=== PATIENT | female | born 1975 | race Caucasian/White ===

== ENCOUNTER 2016-10-21 20:52 | Emergency (ER) | payer BC ==
[~2016-10-21] VITALS: Ht 154.9 cm; Wt 68.0 kg
[2016-10-21 21:40] VITALS: BP 130/85
[2016-10-21 22:15] LABS: BASOPHILS % (AUTO) 0.9 % (0.0-2.0); EOSINOPHILS % (AUTO) 1.6 % (0.0-3.0); MEAN CORPUSCULAR HEMOGLOBIN 31.3 PG (27.0-31.0); MEAN CORPUSCULAR HGB CONC 32.5 G/DL (32.0-36.0); MEAN CORPUSCULAR VOLUME 96 FL (80-99); MEAN PLATELET VOLUME 6.5 FL (6.5-10.1); MONOCYTES % (AUTO) 3.2 % (1.0-10.0); NEUTROPHILS % (AUTO) 79.3 % (45.0-75.0); PLATELET COUNT 425 K/UL (150-450); RED BLOOD COUNT 3.93 M/UL (4.20-5.40); RED CELL DISTRIBUTION WIDTH 13.7 % (11.6-14.8); WHITE BLOOD COUNT 11.5 K/UL (4.8-10.8)
[2016-10-21 22:30] LABS: PROTHROMBIN TIME 10.3 SEC (9.30-11.50)
[2016-10-21 22:55] LABS: ALANINE AMINOTRANSFERASE 42 U/L (3-33); ALBUMIN/GLOBULIN RATIO 1.5 (1.0-2.7); ANION GAP 12 (5-15); ASPARTATE AMINO TRANSFERASE 25 U/L (5-40); CALCIUM 9.5 mg/dL (8.6-10.2); CARBON DIOXIDE 24 mEQ/L (20-30); CHLORIDE 100 mEQ/L (98-107); GLOMERULAR FILTRATION RATE > 60 mL/min (>60); HEMOLYSIS 103; LIPASE 25 U/L (< 60); SODIUM 136 mEQ/L (135-145)
[2016-10-21 22:56] LABS: AMMONIA 35 umol/L (11-51)
[2016-10-22] MEDS ORDERED: PEPCID20 MG ORAL (00:01)
[2016-10-22] MEDS ORDERED: METRONIDAZOLE500 MG ORAL (00:01)
[2016-10-22 00:25] LABS: KETONES,URINE 3+ (NEGATIVE); NITRITE,URINE NEGATIVE (NEGATIVE); PH,URINE 5 (4.5-8.0); PROTEIN,URINE 2+ (NEGATIVE); UROBILINOGEN,URINE 4 MG/DL (0.0-1.0)
[2016-10-22 00:39] LABS: APPEARANCE,URINE SLIGHTLY CLOUDY; LEUKOCYTE ESTERASE ,URINE 2+ (NEGATIVE)
[2016-10-22 00:43] LABS: BACTERIA,URINE MANY /HPF; RBC,URINE 0-2 /HPF (0 - 2); WBC,URINE 15-20 /HPF (0 - 2)
[2016-10-22 00:44] LABS: SQUAMOUS EPITHELIAL CELL,UR MANY /LPF (NONE/OCC)
[2016-10-22 00:45] LABS: ICTOTEST POSITIVE
[2016-10-22] MEDS ORDERED: KEFLEX500 MG ORAL (00:56)
[2016-10-22 01:00] VITALS: BP 128/78
[2016-10-22 01:07] VITALS: BP 128/78
--- NOTE | 2016-10-25 15:04 | Cardiology Report ---
APPROVED REPORT EKG Measurement Heart [id number] Normal sinus rhythm Low voltage QRS Nonspecific T wave abnormality Abnormal ECG
--- NOTE | 2016-10-27 07:11 | Emergency Room Report ---
History of Present Illness General Chief Complaint: Nausea, Vomiting, and Diarrhea Source: Patient Present Illness HPI Patient is a 40-year-old female who presented after increased nausea vomiting and diarrhea. The patient gradual onset of symptoms in the past 5 days. This reported having intermittent abdominal cramping. She reported having dark- colored stool. She reportedly had been taking Pepto-Bismol. This had not changed her diarrhea. She had not been having any hematemesis. Patient was to have no recent fever. Allergies: Coded Allergies: NSAIDS (NON-STEROIDAL ANTI-INFLAMMA (Verified Allergy, Unknown, 10/21/16) Patient History Past Medical History: see triage record Last Menstrual Period: Menopause Now: No Reviewed Nursing Documentation: PMH: Agreed, PSxH: Agreed Nursing Documentation-PMH Past Medical History: No History, Except For Review of Systems All Other Systems: negative except mentioned in HPI Physical Exam Vital Signs Date Time Temp Pulse Resp B/P Pulse Ox O2 Delivery O2 Flow Rate FiO2 10/21/16 21:28 99.0 99 16 130/85 100 Room Air Sp02 EP Interpretation: reviewed, normal General Appearance: normal inspection, well appearing, no apparent distress, alert, GCS 15 Head: atraumatic ENT: normal ENT inspection, hearing grossly normal, normal voice Neck: normal inspection, full range of motion, supple, no bony tend Respiratory: normal inspection, lungs clear, normal breath sounds, no respiratory distress, no retraction, no wheezing Cardiovascular #1: regular rate, rhythm, no edema Gastrointestinal: normal inspection, normal bowel sounds, non tender, soft, no guarding, no hernia Genitourinary: no CVA tenderness Musculoskeletal: normal inspection, back normal, normal range of motion Neurologic: normal inspection, alert, oriented x3, responsive, development specialist III-XII nml as tested, speech normal Psychiatric: normal inspection, judgement/insight normal, mood/affect normal Skin: normal inspection, normal color, no rash Medical Decision Making Diagnostic Impression: Primary Impression: Gastroenteritis Additional Impression: UTI (urinary tract infection) ER Course Patient presented for abdominal pain. Differential diagnoses included ischemic bowel, appendicitis, perforated viscus, abdominal aortic aneurysm, inferior myocardial infarction, viral gastroenteritis Because of complexity of patient's case laboratory testing and imaging studies were ordered. Patient started on IV fluids. Patient was given IV magnesium. EKG interpreted me showed normal sinus rhythm without acute ST or T wave changes. The patient noted have a slightly prolonged QT interval. Laboratory testing showed adequate hemoglobin. Given the patient's symptoms. Patient was advised to followup with a GI for further evaluation. Patient is advised to return if she began feeling dizzy lightheaded or had other concerns. Labs Test 10/21/16 22:03 10/22/16 00:09 10/22/16 04:00 White Blood Count 11.5 K/UL (4.8-10.8) Red Blood Count 3.93 M/UL (4.20-5.40) Hemoglobin 12.3 G/DL (12.0-16.0) Hematocrit 37.9 % (37.0-47.0) Mean Corpuscular Volume 96 FL (80-99) Mean Corpuscular Hemoglobin 31.3 PG (27.0-31.0) Mean Corpuscular Hemoglobin Concent 32.5 G/DL (32.0-36.0) Red Cell Distribution Width 13.7 % (11.6-14.8) Platelet Count 425 K/UL (150-450) Mean Platelet Volume 6.5 FL (6.5-10.1) Neutrophils (%) (Auto) 79.3 % (45.0-75.0) Lymphocytes (%) (Auto) 15.0 % (20.0-45.0) Monocytes (%) (Auto) 3.2 % (1.0-10.0) Eosinophils (%) (Auto) 1.6 % (0.0-3.0) Basophils (%) (Auto) 0.9 % (0.0-2.0) Prothrombin Time 10.3 SEC (9.30-11.50) Prothromb Time International Ratio 1.0 (0.9-1.1) Activated Partial Thromboplast Time 24 SEC (23-33) Sodium Level 136 mEQ/L (135-145) Potassium Level 4.0 mEQ/L (3.4-4.9) Chloride Level 100 mEQ/L (98-107) Carbon Dioxide Level 24 mEQ/L (20-30) Anion Gap 12 (5-15) Blood Urea Nitrogen 15 mg/dL (7-23) Creatinine 1.0 mg/dL (0.5-0.9) Estimat Glomerular Filtration Rate > 60 mL/min (>60) Glucose Level 109 mg/dL (74-106) Calcium Level 9.5 mg/dL (8.6-10.2) Total Bilirubin 0.3 mg/dL (0.0-1.2) Aspartate Amino Transf (AST/SGOT) 25 U/L (5-40) Alanine Aminotransferase (ALT/SGPT) 42 U/L (3-33) Alkaline Phosphatase 129 U/L (35-104) Ammonia 35 umol/L (11-51) Total Protein 7.0 g/dL (6.6-8.7) Albumin 4.3 g/dL (3.5-5.2) Globulin 2.7 g/dL Albumin/Globulin Ratio 1.5 (1.0-2.7) Lipase 25 U/L (< 60) Urine Color Yellow Urine Appearance Slightly cloudy Urine pH 5 (4.5-8.0) Urine Specific [place] 1.020 (1.005-1.035) Urine Protein 2+ (NEGATIVE) Urine Glucose (UA) Negative (NEGATIVE) Urine Ketones 3+ (NEGATIVE) Urine Occult Blood 1+ (NEGATIVE) Urine Nitrite Negative (NEGATIVE) Urine Bilirubin 3+ (NEGATIVE) Urine Ictotest Positive Urine Urobilinogen 4 MG/DL (0.0-1.0) Urine Leukocyte Esterase 2+ (NEGATIVE) Urine RBC 0-2 /HPF (0 - 2) Urine WBC 15-20 /HPF (0 - 2) Urine Squamous Epithelial Cells Many /LPF (NONE/OCC) Urine Bacteria Many /HPF (NONE) Urine HCG, Qualitative Negative Trainer Level 2.00 MMOL/L (0.5-1.5) EKG Diagnostic Results Rate: normal Rhythm: NSR ST Segments: no acute changes Last Vital Signs Date Time Temp Pulse Resp B/P Pulse Ox O2 Delivery O2 Flow Rate FiO2 10/22/16 01:07 99.0 71 16 128/78 100 Room Air 70 Status: improved Disposition: HOME, SELF-CARE Condition: Stable Scripts Cephalexin* (KEFLEX*) 500 Mg Capsule 500 MG ORAL Q6H, #28 CAP 0 Refills Prov: Manfred Atkins 10/22/16 Metronidazole* (FLAGYL*) 500 Mg Tablet 500 MG ORAL BID, #14 TAB Prov: Manfred Atkins 10/22/16 Famotidine (PEPCID) 20 Mg Tablet 20 MG ORAL DAILY, #14 TAB 0 Refills Prov: Manfred Atkins 10/22/16 Patient Instructions: Bloody Diarrhea, Dehydration, Adult Manfred Atkins Oct 27, 2016 07:11
== END 2016-10-22 01:07 | disposition home or self-care (01) ==
LOC: EMR 21:40
DX: K52.9 Noninfective gastroenteritis and colitis, unspecified (principal); N39.0 Urinary tract infection, site not specified; Z88.8 Allergy status to other drugs, medicaments and biological substances
CPT/HCPCS: 36415; 80053; 80178; 81003; 81025; 82140; 83690; 85025; 85610; 85730; 86850; 86900; 86901; 87086; 93005; 96374; 96375

== ENCOUNTER 2016-11-27 00:51 | Emergency (ER) | payer BC ==
[~2016-11-27] VITALS: Ht 152.4 cm; Wt 52.2 kg
[~2016-11-27 00:51] MED LIST: KEFLEX500 MG ORAL; METRONIDAZOLE500 MG ORAL; PEPCID20 MG ORAL
[2016-11-27] MEDS ORDERED: VALIUM10 MG ORAL (01:08)
[2016-11-27] MEDS ORDERED: KLONOPIN1 MG ORAL (01:08)
[2016-11-27 01:19] VITALS: BP 108/73
--- NOTE | 2016-11-27 01:27 | Emergency Room Report ---
History of Present Illness General Chief Complaint: General Complaint Source: Patient Present Illness HPI This is a 40-year-old female with a history of chronic pain secondary to neck surgery. Also history anxiety. She presents with chief complaint of anxiety attack. She said his sugar by her pain. She said she been in pain for last 6 hours. [place] very anxious. Took her pain medication not helping. Took her Valium and Xanax is not helping. She came in complaining of anxiety attack. No fever chills but no nausea no vomiting. No chest pain. No other complaint. Allergies: Coded Allergies: NSAIDS (NON-STEROIDAL ANTI-INFLAMMA (Verified Allergy, Unknown, 10/21/16) Patient History Past Medical History: see triage record, old chart reviewed Past Surgical History: other Pertinent Family History: none Social History: Denies: smoking Last Menstrual Period: ukn Now: No Immunizations: other Reviewed Nursing Documentation: PMH: Agreed, PSxH: Agreed Nursing Documentation-PMH Past Medical History: No History, Except For History Of Psychiatric Problem: Yes - Anxiety; Depression; Chronic pain Review of Systems Eye: Denies: blurred vision, eye pain ENT: Denies: ear pain, nose congestion, throat swelling Respiratory: Denies: cough, shortness of breath Cardiovascular: Denies: chest pain, palpitations Gastrointestinal: Denies: abdominal pain, diarrhea, nausea, vomiting Musculoskeletal: Denies: back pain, joint pain Skin: Denies: rash Neurological: Denies: headache, numbness Endocrine: Denies: increased thirst, increased urine Hematologic/Lymphatic: Denies: easy bruising All Other Systems: negative except mentioned in HPI Physical Exam Vital Signs Date Time Temp Pulse Resp B/P Pulse Ox O2 Delivery O2 Flow Rate FiO2 11/27/16 01:01 97.5 85 16 108/73 97 Room Air vitals normal Sp02 EP Interpretation: reviewed, normal General Appearance: well appearing, no apparent distress, alert, other - Patient is sleepy and slurring her speech. Head: normocephalic, atraumatic Eyes: bilateral eye EOMI, bilateral eye PERRL ENT: hearing grossly normal, normal pharynx Neck: full range of motion, supple, no meningismus Respiratory: chest non-tender, lungs clear, normal breath sounds Cardiovascular #1: regular rate, rhythm, no murmur Gastrointestinal: normal bowel sounds, non tender, no mass, no organomegaly, no bruit, non-distended Musculoskeletal: back normal, gait/station normal, normal range of motion Psychiatric: mood/affect normal Skin: warm/dry Medical Decision Making Diagnostic Impression: Primary Impression: Chronic pain Qualified Codes: G89.4 - Chronic pain syndrome Additional Impressions: Anxiety Opioid dependence Qualified Codes: F11.20 - Opioid dependence, uncomplicated Benzodiazepine dependence ER Course Patient said that she has chronic pain anxiety. She said she only get 120 [place] a month. On the [employer] system, in the month of October, she received 212 tablets of [place] 10 mg/325 mg. She also received clonazepam 2 mg #90 and diazepam 5 mg #15. Patient is arty very intoxicated slurring her speech and barely able to keep herself awake. I am uncomfortable giving her any more controlled substance. We 'll discharge home and have her followup with her doctor on Sunday. Last Vital Signs Date Time Temp Pulse Resp B/P Pulse Ox O2 Delivery O2 Flow Rate FiO2 11/27/16 01:01 97.5 85 16 108/73 97 Room Air Status: unchanged Disposition: HOME, SELF-CARE Condition: Stable Referrals: NON PHYSICIAN (PCP) Additional Instructions: Followup with your doctor Sunday for refill your medication. Return if symptom worsen. MARIAJOSE EASTMAN M.D. Nov 27, 2016 01:27
[2016-11-27 01:30] VITALS: BP 108/73
== END 2016-11-27 01:30 | disposition home or self-care (01) ==
LOC: EMR 01:18
DX: G89.28 Other chronic postprocedural pain (principal); F41.9 Anxiety disorder, unspecified; F11.20 Opioid dependence, uncomplicated; F32.9 Major depressive disorder, single episode, unspecified; Z88.6 Allergy status to analgesic agent
CPT/HCPCS: 99284

== ENCOUNTER 2016-12-19 22:53 | Emergency (ER) | payer BC ==
[~2016-12-19] VITALS: Ht 152.4 cm; Wt 68.0 kg
[~2016-12-19 22:53] MED LIST changes: +KLONOPIN1 MG ORAL; +VALIUM10 MG ORAL
[2016-12-19 23:05] VITALS: BP 126/81
--- NOTE | 2016-12-19 23:30 | Emergency Room Report ---
History of Present Illness General Chief Complaint: General Complaint Source: Patient Present Illness HPI Patient presents with complaints of feeling anxious she reports that she had gone to [facility] this morning she received some medication however does not feel that it fully resolve her symptoms Patient reports that she's had previous surgery including neck surgery She thinks that possibly not taking her clonazepam and [place] this evening might have contributed to her sensation Patient feels that her skin is crawling under her She reports that she essentially has his prescriptions from her psychiatrist and has not had any further discussion At this time denies any chest pain denies any fevers or chills Patient also reports that she has not taken her [place] now for the past 2 days and feels that she might be withdrawing Allergies: Coded Allergies: NSAIDS (NON-STEROIDAL ANTI-INFLAMMA (Verified Allergy, Unknown, 10/21/16) Patient History Past Medical History: see triage record Pertinent Family History: none Reviewed Nursing Documentation: PMH: Agreed, PSxH: Agreed Nursing Documentation-PMH History Of Psychiatric Problem: Yes - ANXIETY Review of Systems All Other Systems: negative except mentioned in HPI Physical Exam Vital Signs Date Time Temp Pulse Resp B/P (MAP) Pulse Ox O2 Delivery O2 Flow Rate FiO2 12/19/16 22:58 98.1 101 20 126/81 97 Room Air Sp02 EP Interpretation: reviewed, normal General Appearance: mild distress - At times patient has appearance of appropriate behavior however at times patient had become tearful and appears anxious, Head: normocephalic, atraumatic Eyes: bilateral eye PERRL, bilateral eye EOMI ENT: hearing grossly normal, normal pharynx, TMs + canals normal, uvula midline Neck: full range of motion, supple, no meningismus, no bony tend Respiratory: lungs clear, normal breath sounds, no rhonchi, no respiratory distress, no retraction, no accessory muscle use Cardiovascular #1: normal peripheral pulses, regular rate, rhythm, no edema, no gallop, no JVD, no murmur Gastrointestinal: normal bowel sounds, non tender, soft, no mass, no organomegaly, non-distended, no guarding, no hernia, no pulsatile mass, no rebound Musculoskeletal: normal inspection Neurologic: oriented x3, responsive, pool nurse III-XII nml as tested, motor strength/ tone normal, sensory intact Psychiatric: mood/affect normal Skin: normal color, no rash, warm/dry, palpation normal Lymphatic: normal inspection, no adenopathy Medical Decision Making Diagnostic Impression: Primary Impression: Opiate withdrawal Additional Impression: Myalgia ER Course Multiple differentials considered Patient has had recent blood work in the computer and therefore this was not repeated Patient agrees that she feels that she is possibly withdrawing from [place] which she has not taken over the past 2 days This was provided for her here in the ER I did have a lengthy discussion with the patient regarding continued outpatient care pain management issues The patient will follow closely Last Vital Signs Date Time Temp Pulse Resp B/P (MAP) Pulse Ox O2 Delivery O2 Flow Rate FiO2 12/19/16 23:05 20 126/81 97 Room Air 12/19/16 22:58 98.1 101 Status: improved Disposition: HOME, SELF-CARE Condition: Improved Additional Instructions: Patient is provided with the discharge instructions notified to follow up with primary doctor in the next 2-3 days otherwise return to the er with any worsening symptoms. Please note that this report is being documented using [employer] technology. This can lead to erroneous entry secondary to incorrect interpretation by the dictating instrument. JOSE C HERRERA D.O. Dec 19, 2016 23:30
[2016-12-19] MEDS ORDERED: Norco 5mg/325mg tab ORAL ONE (23:45)
[2016-12-19 23:55] VITALS: BP 126/81
== END 2016-12-19 23:55 | disposition home or self-care (01) ==
LOC: EMR 23:21
DX: F11.23 Opioid dependence with withdrawal (principal); M79.1 Myalgia; Z88.8 Allergy status to other drugs, medicaments and biological substances
CPT/HCPCS: 99283

== ENCOUNTER 2016-12-20 12:19 | Emergency (ER) | payer BC ==
[~2016-12-20] VITALS: Ht 162.6 cm; Wt 65.8 kg
--- NOTE | 2016-12-20 13:13 | Emergency Room Report ---
History of Present Illness General Chief Complaint: General Complaint Source: Patient Present Illness HPI 41-year-old female presents to the emergency department complaining of 9/10 in severity aches and pains generalized body with restlessness and increase in side the times one day. Patient states she is in chronic pain management and takes [place] regularly and ran out of her prescription early as she was in a lot of pain. Patient states she's prescribed pain medication for chronic neck pain for which she had surgery for. Patient states that her doctor suggested that she go on Suboxone next and she states she has been in treatment centers. She denies past medical history such as cardiac or thyroid disorder. Denies abdominal pain, constipation, diarrhea, fevers or chills. Patient states she is also prescribed Valium for which she took and it did not help yesterday. Denies CP, Palpitations, LOC, AMS, dizziness, Changes in Vision, Sensation, paresthesias, or a sudden severe headache. Allergies: Coded Allergies: NSAIDS (NON-STEROIDAL ANTI-INFLAMMA (Verified Allergy, Unknown, 10/21/16) Patient History Past Medical History: see triage record Past Surgical History: none Pertinent Family History: none Now: No Reviewed Nursing Documentation: PMH: Agreed, PSxH: Agreed Review of Systems All Other Systems: negative except mentioned in HPI Physical Exam Vital Signs Date Time Temp Pulse Resp B/P (MAP) Pulse Ox O2 Delivery O2 Flow Rate FiO2 12/20/16 12:48 97.9 92 16 133/80 98 Room Air Sp02 EP Interpretation: reviewed, normal General Appearance: alert, GCS 15, non-toxic, mild distress Head: normocephalic, atraumatic Eyes: bilateral eye normal inspection, bilateral eye PERRL ENT: hearing grossly normal, no angioedema, normal voice Neck: full range of motion Respiratory: chest non-tender, lungs clear, normal breath sounds, speaking full sentences Cardiovascular #1: regular rate, rhythm, no edema Gastrointestinal: normal bowel sounds, non tender, soft, no guarding, no rebound Rectal: deferred Musculoskeletal: back normal, gait/station normal, normal range of motion Neurologic: alert, oriented x3, responsive, motor strength/tone normal, sensory intact, speech normal Psychiatric: judgement/insight normal, memory normal, mood/affect normal, anxious - restless, cant sit still durring examination Skin: normal color, no rash, warm/dry, well hydrated Medical Decision Making PA Attestation Dr. Atkins is my supervising Physician whom patient management has been discussed with. Diagnostic Impression: Primary Impression: Opiate withdrawal Additional Impressions: History of anxiety Opiate dependence, continuous ER Course 41-year-old female presents to the emergency department complaining of 9/10 in severity aches and pains generalized body with restlessness and increase in side the times one day. Patient states she is in chronic pain management and takes [place] regularly and ran out of her prescription early as she was in a lot of pain. Patient states she's prescribed pain medication for chronic neck pain for which she had surgery for. Patient states that her doctor suggested that she go on Suboxone next and she states she has been in treatment centers. She denies past medical history such as cardiac or thyroid disorder. Denies abdominal pain, constipation, diarrhea, fevers or chills. Patient states she is also prescribed Valium for which she took and it did not help yesterday. Denies CP, Palpitations, LOC, AMS, dizziness, Changes in Vision, Sensation, paresthesias, or a sudden severe headache. Review of pt. chart for Recent ED Visit yesterday for the same symptoms, she was given 2 [place] here, and was seen earlier that A.M at [facility]. Ddx considered but are not limited to opiate dependence, withdraw symptoms, anxiety, hyperthyroid, electrolyte dysfunction, chronic pain syndrome just to name a few. Vital signs: are WNL, pt. is afebrile H&PE are most consistent with Opiate dependence and hx of anxiety, pt is non- toxic in appearance. visibly anxious, physical exam otherwise WNL. ORDERS: none required at this time, the diagnosis is clinical ED INTERVENTIONS: - 0.5 mg Ativan PO - Gave pt. reassurance that although uncomfortable, opiate withdraw symptoms are not life threatening. D/W Pt that this is her 3rd ED medical evaluation in a 24 hour period. d/w pt available substance dependence resources, or have medication management performed by PCP or chronic pain management provider. I do not suspect an emergent condition at this time. with current presentation pt. is stable for close outpatient follow up. D/w pt. to return to ED with worsening or new symptoms. DISCHARGE: At this time pt. is stable for d/c to home. Will provide printed patient care instructions, and any necessary prescriptions. Care plan and follow up instructions have been discussed with the patient prior to discharge. Last Vital Signs Date Time Temp Pulse Resp B/P (MAP) Pulse Ox O2 Delivery O2 Flow Rate FiO2 12/20/16 12:48 97.9 92 16 133/80 98 Room Air Disposition: HOME, SELF-CARE Condition: Stable Patient Instructions: Chronic Pain, Finding Treatment for Addiction Additional Instructions: Take previously prescribed medications as directed. Review list of substance abuse resources, contact your prescribing physician regarding management of her chronic pain. Follow up with Your Primary Care Provider in 2 days, even if your symptoms have resolved. --Please review list of primary care clinics, if you do not already have a primary care provider Return sooner to ED if new symptoms occur, or current symptoms become worse. - Please note that this Emergency Department Report was dictated using [employer] pasteurizer technology software, occasionally this can lead to erroneous entry secondary to interpretation by the dictation equipment. Lauren Lawton Dec 20, 2016 13:13
[2016-12-20] MEDS ORDERED: LORazepam 0.5mg tab ORAL ONE (13:30)
[2016-12-20 13:37] VITALS: BP 133/80
== END 2016-12-20 13:40 | disposition home or self-care (01) ==
LOC: EMR 13:18
DX: Z88.6 Allergy status to analgesic agent (principal); F11.23 Opioid dependence with withdrawal; F41.9 Anxiety disorder, unspecified; R52 Pain, unspecified; R45.1 Restlessness and agitation
CPT/HCPCS: 99283

== ENCOUNTER 2017-01-05 17:13 | Emergency (ER) | payer BC ==
[~2017-01-05] VITALS: Ht 152.4 cm; Wt 68.0 kg
[2017-01-05] MEDS ORDERED: Methocarbamol 750mg tab ORAL ONE (17:30)
[2017-01-05 17:51] LABS: APPEARANCE,URINE CLEAR; KETONES,URINE 1+ (NEGATIVE); LEUKOCYTE ESTERASE ,URINE 1+ (NEGATIVE); NITRITE,URINE NEGATIVE (NEGATIVE); PH,URINE 5 (4.5-8.0); PROTEIN,URINE NEGATIVE (NEGATIVE); UROBILINOGEN,URINE NORMAL MG/DL (0.0-1.0)
[2017-01-05 18:00] LABS: RBC,URINE 0-2 /HPF (0 - 2)
[2017-01-05 18:01] LABS: BACTERIA,URINE FEW /HPF; SQUAMOUS EPITHELIAL CELL,UR FEW /LPF (NONE/OCC)
[2017-01-05 18:09] VITALS: BP 98/61
[2017-01-05] MEDS ORDERED: TYLENOL325 MG ORAL (18:19)
[2017-01-05] MEDS ORDERED: ROBAXIN-750750 MG PO (18:19)
[2017-01-05 18:49] VITALS: BP 98/64
--- NOTE | 2017-01-05 21:02 | Emergency Room Report ---
History of Present Illness General Chief Complaint: Pain Source: Patient Present Illness HPI The patient is a 41-year-old female presenting for back pain which began today for no known reason. She describes the pain as a 9/10 dull ache to the lower back which radiates upwards. Pain worse with movement. She denies any numbness or tingling. She denies any other symptoms including dysuria, increased urinary frequency, hematuria, vaginal discharge, abd pain, fever, chills Allergies: Coded Allergies: NSAIDS (NON-STEROIDAL ANTI-INFLAMMA (Verified Allergy, Unknown, 10/21/16) Patient History Past Medical History: see triage record Pertinent Family History: none Now: No Reviewed Nursing Documentation: PMH: Agreed, PSxH: Agreed Review of Systems All Other Systems: negative except mentioned in HPI Physical Exam Vital Signs Date Time Temp Pulse Resp B/P (MAP) Pulse Ox O2 Delivery O2 Flow Rate FiO2 01/05/17 17:17 98.6 85 15 112/75 99 Room Air Sp02 EP Interpretation: reviewed, normal General Appearance: no apparent distress, alert, GCS 15, non-toxic Head: normocephalic, atraumatic Eyes: bilateral eye normal inspection, bilateral eye PERRL ENT: hearing grossly normal, normal pharynx, no angioedema, normal voice Neck: full range of motion, supple/symm/no masses Respiratory: chest non-tender, lungs clear, normal breath sounds, speaking full sentences Gastrointestinal: normal bowel sounds, non tender, soft, non-distended, no guarding, no rebound Genitourinary: normal inspection, no CVA tenderness Musculoskeletal: normal inspection, back normal, gait/station normal, normal range of motion, tender - TTP with soft palpation to bilat lumbar paspinal muscles Neurologic: alert, oriented x3, responsive, motor strength/tone normal, sensory intact, speech normal Psychiatric: judgement/insight normal, memory normal, mood/affect normal, no suicidal/homicidal ideation Skin: normal color, no rash, warm/dry, well hydrated Medical Decision Making PA Attestation Dr. Sepulveda is my supervising physician. Patient management was discussed with my supervising physician Diagnostic Impression: Primary Impression: Muscle strain ER Course The patient is a 41-year-old female presenting for back pain Ddx considered include but not limited to lumbar strain, degenerative disease, chronic pain, narcotic dependency, UTI, among others PE: NAD RRR Lungs CTA bilat Abd is soft and non tender Msk: TTP over bilat lumbar paraspinal muscles. No midline tenderness. No step- offs. UA unremarkable The patient is give robaxin and states she is feeling better. She declines motrin and tylenol. She is PA'ed home with prescription for robaxin. ER precautions given Laboratory Tests Test 01/05/17 17:24 Urine Color Yellow Urine Appearance Clear Urine pH 5 (4.5-8.0) Urine Specific [place] 1.025 (1.005-1.035) Urine Protein Negative (NEGATIVE) Urine Glucose (UA) Negative (NEGATIVE) Urine Ketones 1+ (NEGATIVE) H Urine Occult Blood 1+ (NEGATIVE) H Urine Nitrite Negative (NEGATIVE) Urine Bilirubin Negative (NEGATIVE) Urine Urobilinogen Normal MG/DL (0.0-1.0) Urine Leukocyte Esterase 1+ (NEGATIVE) H Urine RBC 0-2 /HPF (0 - 2) Urine WBC 2-4 /HPF (0 - 2) Urine Squamous Epithelial Cells Few /LPF (NONE/OCC) Urine Bacteria Few /HPF (NONE) Urine HCG, Qualitative Negative Lab Results Impression Not consistent with infection Last Vital Signs Date Time Temp Pulse Resp B/P (MAP) Pulse Ox O2 Delivery O2 Flow Rate FiO2 01/05/17 18:49 68 16 98/64 100 Room Air 01/05/17 18:09 98.7 Status: improved Disposition: HOME, SELF-CARE Condition: Improved Scripts Methocarbamol* (ROBAXIN-750*) 750 Mg Tablet 750 MG PO TID, #21 TAB 0 Refills Prov: TERZIAN,MATTHEW P.A. 01/05/17 Acetaminophen (Tylenol) 325 Mg Tablet 325 MG ORAL Q6H Y for Prn Pain/Headache/Temp > 101, #30 TAB 0 Refills Prov: TERZIAN,MATTHEW P.A. 01/05/17 Referrals: NON PHYSICIAN (PCP) Patient Instructions: Muscle Strain Additional Instructions: I discussed my findings with the patient. All questions and concerns have been answered. Treatment and medication compliance have been addressed. I advised the patient that they need to follow up with PMD in 3-5 days. Return to ED if pain remains or worsens, numbness or tingling occurs, new rash is noticed, fever is noticed, or if needed for any reason. Patient verbalized understanding of discharge instructions. MATTHEW SHERMAN Jan 05, 2017 21:02
== END 2017-01-05 18:31 | disposition home or self-care (01) ==
LOC: EMR 18:10
DX: S39.012A Strain of muscle, fascia and tendon of lower back, initial encounter (principal); X58.XXXA Exposure to other specified factors, initial encounter; Y93.9 Activity, unspecified; Y99.9 Unspecified external cause status; Z88.6 Allergy status to analgesic agent
CPT/HCPCS: 81001; 81025; 99284

== ENCOUNTER 2017-03-23 20:03 | Emergency (ER) | payer BC ==
[~2017-03-23] VITALS: Ht 152.4 cm; Wt 68.0 kg
[~2017-03-23 20:03] MED LIST changes: +ROBAXIN-750750 MG PO; +TYLENOL325 MG ORAL
[2017-03-23] MEDS ORDERED: LORazepam 1mg tab ORAL ONE (20:15)
[2017-03-23 21:06] LABS: BASOPHILS % (AUTO) 0.9 % (0.0-2.0); EOSINOPHILS % (AUTO) 1.3 % (0.0-3.0); LYMPHOCYTES % (AUTO) 26.7 % (20.0-45.0); MEAN CORPUSCULAR HEMOGLOBIN 27.3 PG (27.0-31.0); MEAN CORPUSCULAR HGB CONC 31.4 G/DL (32.0-36.0); MEAN CORPUSCULAR VOLUME 87 FL (80-99); MEAN PLATELET VOLUME 7.5 FL (6.5-10.1); MONOCYTES % (AUTO) 5.9 % (1.0-10.0); NEUTROPHILS % (AUTO) 65.1 % (45.0-75.0); PLATELET COUNT 375 K/UL (150-450); RED BLOOD COUNT 4.24 M/UL (4.20-5.40); RED CELL DISTRIBUTION WIDTH 13.7 % (11.6-14.8); WHITE BLOOD COUNT 8.5 K/UL (4.8-10.8)
[2017-03-23 21:24] LABS: ANION GAP 8 mmol/L (5-15); CALCIUM 9.2 MG/DL (8.5-10.1); CARBON DIOXIDE 24 MMOL/L (21-32); CHLORIDE 109 MMOL/L (98-107); CREATININE 1.1 MG/DL (0.55-1.30); GLOMERULAR FILTRATION RATE 54.8 mL/min (>60); SODIUM 141 MMOL/L (136-145)
[2017-03-23 21:28] LABS: ALANINE AMINOTRANSFERASE 19 U/L (12-78); ALBUMIN/GLOBULIN RATIO 0.9 (1.0-2.7); ASPARTATE AMINO TRANSFERASE 20 U/L (15-37); TOTAL PROTEIN 7.1 G/DL (6.4-8.2)
[2017-03-23 21:38] LABS: ACETAMINOPHEN < 2 MCG/ML (10-30); ALCOHOL < 3 mg/dL
[2017-03-23 22:41] VITALS: BP 100/66
--- NOTE | 2017-03-24 20:48 | Emergency Room Report ---
History of Present Illness General Chief Complaint: Behavioral Complaint Source: Patient Present Illness HPI The patient is a 41-year-old female with a stated history of anxiety disorder presenting for left shoulder pain and anxiety. She has tried Flexeril and Clonopin but states that symptoms have persisted. She has been seen in this emergency department several times for similar complaints. She denies any injury to the area. pain is a 10 out of 10 dull ache and does not radiate. Worse with shoulder movement and touch. She denies other symptoms including N, V, F, chills, SOB, CP, abd pain, back pain Allergies: Coded Allergies: NSAIDS (NON-STEROIDAL ANTI-INFLAMMA (Verified Allergy, Unknown, 10/21/16) Patient History Past Medical History: see triage record Pertinent Family History: none Now: No Reviewed Nursing Documentation: PMH: Agreed, PSxH: Agreed Nursing Documentation-PMH Past Medical History: No History, Except For Hx Cancer: No - Polycystic Ovarain syndrome Review of Systems All Other Systems: negative except mentioned in HPI Physical Exam Vital Signs Date Time Temp Pulse Resp B/P (MAP) Pulse Ox O2 Delivery O2 Flow Rate FiO2 03/23/17 20:05 97.9 98 14 100/66 98 Room Air Sp02 EP Interpretation: reviewed, normal General Appearance: no apparent distress, alert, GCS 15, non-toxic Head: normocephalic, atraumatic Eyes: right eye other - Ptosis ENT: hearing grossly normal, normal pharynx, no angioedema, normal voice Respiratory: chest non-tender, lungs clear, normal breath sounds, speaking full sentences Cardiovascular #1: regular rate, rhythm, no edema Musculoskeletal: back normal, gait/station normal, normal range of motion, non- tender Neurologic: alert, oriented x3, responsive, motor strength/tone normal, sensory intact, speech normal Psychiatric: judgement/insight normal, memory normal, no suicidal/homicidal ideation, anxious Skin: normal color, no rash, warm/dry, well hydrated Medical Decision Making PA Attestation Dr. Atkins is my supervising physician. Patient management was discussed with my supervising physician Diagnostic Impression: Primary Impression: Anxiety ER Course The patient is a 41-year-old female with a stated history of anxiety disorder presenting for left shoulder pain and anxiety Differential diagnoses considered but not limited to suicidal ideation, homicidal ideation, depression, muscle strain, opiate withdrawal, among others PE: Occasional episodes of tachycardia. NAD Mildly anxious RRR. No MRG Lungs CTA bilat There is tenderness with soft palpation over the entire shoulder. No deformity or edema. No skin changes. Full active range of motion is intact EKG shows no acute findings The patient is given Ativan and is now able to relax. She states that she is feeling much better. She'll be discharged home and needs to followup with her psychiatrist and primary doctor. ER precautions are given Labs Test 03/23/17 20:44 White Blood Count 8.5 K/UL (4.8-10.8) Red Blood Count 4.24 M/UL (4.20-5.40) Hemoglobin 11.6 G/DL (12.0-16.0) Hematocrit 36.8 % (37.0-47.0) Mean Corpuscular Volume 87 FL (80-99) Mean Corpuscular Hemoglobin 27.3 PG (27.0-31.0) Mean Corpuscular Hemoglobin Concent 31.4 G/DL (32.0-36.0) Red Cell Distribution Width 13.7 % (11.6-14.8) Platelet Count 375 K/UL (150-450) Mean Platelet Volume 7.5 FL (6.5-10.1) Neutrophils (%) (Auto) 65.1 % (45.0-75.0) Lymphocytes (%) (Auto) 26.7 % (20.0-45.0) Monocytes (%) (Auto) 5.9 % (1.0-10.0) Eosinophils (%) (Auto) 1.3 % (0.0-3.0) Basophils (%) (Auto) 0.9 % (0.0-2.0) Urine HCG, Qualitative Negative Sodium Level 141 MMOL/L (136-145) Potassium Level 4.0 MMOL/L (3.5-5.1) Chloride Level 109 MMOL/L (98-107) Carbon Dioxide Level 24 MMOL/L (21-32) Anion Gap 8 mmol/L (5-15) Blood Urea Nitrogen 17 mg/dL (7-18) Creatinine 1.1 MG/DL (0.55-1.30) Estimat Glomerular Filtration Rate 54.8 mL/min (>60) Glucose Level 121 MG/DL (74-106) Calcium Level 9.2 MG/DL (8.5-10.1) Total Bilirubin 0.2 MG/DL (0.2-1.0) Aspartate Amino Transf (AST/SGOT) 20 U/L (15-37) Alanine Aminotransferase (ALT/SGPT) 19 U/L (12-78) Alkaline Phosphatase 156 U/L (46-116) Troponin I 0.000 ng/mL (0.000-0.056) Total Protein 7.1 G/DL (6.4-8.2) Albumin 3.4 G/DL (3.4-5.0) Globulin 3.7 g/dL Albumin/Globulin Ratio 0.9 (1.0-2.7) Salicylates Level 3.9 ug/mL (2.8-20) Urine Opiates Screen Negative (NEGATIVE) Acetaminophen Level < 2 MCG/ML (10-30) Urine Barbiturates Screen Negative (NEGATIVE) Phencyclidine (PCP) Screen Negative (NEGATIVE) Urine Amphetamines Screen Negative (NEGATIVE) Urine Benzodiazepines Screen Positive (NEGATIVE) Urine Cocaine Screen Negative (NEGATIVE) Urine Marijuana (THC) Screen Negative (NEGATIVE) Serum Alcohol < 3 mg/dL Lab Results Impression All labs unremarkable. No leukocytosis. No significant electrolyte abnormality Troponin is negative Urine negative Drug screen positive for benzo only EKG Diagnostic Results EP Interpretation: NSR. No acute changes Rate: tachycardiac Rhythm: NSR ST Segments: no acute changes ASA given to the pt in ED: No PA Scribe Text EKG was reviewed and read with my supervising physician. No acute ST segment changes are seen. Normal rate and rhythm. No acute changes. Last Vital Signs Date Time Temp Pulse Resp B/P (MAP) Pulse Ox O2 Delivery O2 Flow Rate FiO2 03/23/17 22:41 97.9 14 100/66 98 Room Air 03/23/17 20:05 98 Status: improved Disposition: HOME, SELF-CARE Condition: Improved Patient Instructions: Panic Attacks Additional Instructions: Follow up with your psychiatrist for further evaluation and treatmentI discussed my findings with the patient. All questions and concerns have been answered. Treatment and medication compliance have been addressed. I advised the patient that they need to follow up with PMD in 3-5 days. Return to ED if symptoms worsen, new symptoms arise, or if needed for any reason. Patient verbalized understanding of discharge instructions. Follow up with your psychiatrist for further evaluation and treatment MATTHEW SHERMAN Mar 24, 2017 20:48
--- NOTE | 2017-03-29 11:04 | Cardiology Report ---
APPROVED REPORT EKG Measurement Heart [id number] Normal sinus rhythm Low voltage QRS Cannot rule out Anterior infarct, age undetermined Abnormal ECG
== END 2017-03-23 22:44 | disposition home or self-care (01) ==
LOC: EMR 20:38
DX: F41.9 Anxiety disorder, unspecified (principal); M25.512 Pain in left shoulder; Z79.899 Other long term (current) drug therapy
CPT/HCPCS: 36415; 80053; 80307; 81025; 84484; 85025; 93005; 99282; G0480; 80329

== ENCOUNTER 2017-04-09 16:28 | Emergency (ER) | payer BC ==
[~2017-04-09] VITALS: Ht 152.4 cm; Wt 68.0 kg
[2017-04-09] MEDS ORDERED: LEXAPRO20 MG ORAL (16:57)
--- NOTE | 2017-04-09 17:40 | Emergency Room Report ---
History of Present Illness General Chief Complaint: Pain Source: Patient Present Illness HPI 41 YO Female presents to the ED c/o 01/23 in severity left -sided low back pain that shoots down the leg x 2 day(s). pt. has hx of chronic neck pain requiring surgery. denies trauma or fall. reports hx to Motrin/ NSAIDs, but states she can take Toradol however she prefers morphine. denies fevers, chills abdominal pain , hematuria, recent spinal procedures in the area of her symptoms, or night sweats, or hx of cancer. Denies urinary retention, dysuria, or hematuria. Denies numbness tingling or loss of sensation or gross motor movements of the extremities, incontinence of bowel or bladder. Denies CP, Palpitations, LOC, AMS, dizziness, Changes in Vision, Sensation, paresthesias, or a sudden severe headache. Allergies: Coded Allergies: NSAIDS (NON-STEROIDAL ANTI-INFLAMMA (Verified Allergy, Unknown, 10/21/16) Patient History Past Medical History: see triage record Past Surgical History: none Pertinent Family History: none Last Menstrual Period: 20+ yrs ago. Now: No Reviewed Nursing Documentation: PMH: Agreed, PSxH: Agreed Nursing Documentation-PMH Hx Cancer: No - Polycystic Ovarain syndrome Review of Systems All Other Systems: negative except mentioned in HPI Physical Exam Vital Signs Date Time Temp Pulse Resp B/P (MAP) Pulse Ox O2 Delivery O2 Flow Rate FiO2 04/09/17 16:52 98.1 97 20 109/72 100 Room Air Sp02 EP Interpretation: reviewed, normal General Appearance: no apparent distress, alert, GCS 15, non-toxic Head: normocephalic, atraumatic Eyes: bilateral eye normal inspection, bilateral eye PERRL ENT: hearing grossly normal, normal voice Neck: full range of motion Respiratory: lungs clear, normal breath sounds, speaking full sentences Cardiovascular #1: regular rate, rhythm Gastrointestinal: non tender, soft Rectal: deferred Genitourinary: normal inspection, no CVA tenderness Musculoskeletal: back normal, gait/station normal, normal range of motion, tender - left paraspinal ttp, no midline ttp, some mild ttp to the upper left gluteal muscle, FROM of Spine, and hips. ambulatory with steady gait. pain with straight leg raise bilaterally. Neurologic: alert, oriented x3, responsive, motor strength/tone normal, sensory intact, normal gait, speech normal, grossly normal Skin: normal color, no rash, warm/dry, well hydrated Medical Decision Making PA Attestation Dr. Atkins is my supervising Physician whom patient management has been discussed with. Diagnostic Impression: Primary Impression: Back pain Qualified Codes: M54.42 - Lumbago with sciatica, left side Additional Impression: Sciatic nerve pain Qualified Codes: M54.32 - Sciatica, left side ER Course 41 YO Female presents to the ED c/o 01/23 in severity left -sided low back pain that shoots down the leg x 2 day(s). pt. has hx of chronic neck pain requiring surgery. denies trauma or fall. reports hx to Motrin/ NSAIDs, but states she can take Toradol however she prefers morphine. denies fevers, chills abdominal pain , hematuria, recent spinal procedures in the area of her symptoms, or night sweats, or hx of cancer. Denies urinary retention, dysuria, or hematuria. Denies numbness tingling or loss of sensation or gross motor movements of the extremities, incontinence of bowel or bladder. Denies CP, Palpitations, LOC, AMS, dizziness, Changes in Vision, Sensation, paresthesias, or a sudden severe headache. Ddx considered but are not limited to Fracture, dislocation, contusion, epidural abscess, Sprain/Strain/Spasm Vital signs: are WNL, pt. is afebrile H&PE are most consistent with sciatica Positive pain with straight leg raise. ORDERS: X-ray not required at this time, no spinous process tenderness, no evidence of cauda equina, spinal chord injury or neurological deficit. ED INTERVENTIONS: -IM Toradol 20mg. -Robaxin PO I do not suspect an emergent condition at this time. With current presentation, pt. is stable for close outpatient follow up and conservative treatment. D/w pt. to return promptly to ED with worsening or new symptoms.- Pt. (and or responsible libertarian) verbalizes' understanding and agreement with proposed treatment plan. DISCHARGE: At this time pt. is stable for d/c to home. Will provide printed patient care instructions, and any necessary prescriptions. Care plan and follow up instructions have been discussed with the patient prior to discharge. Last Vital Signs Date Time Temp Pulse Resp B/P (MAP) Pulse Ox O2 Delivery O2 Flow Rate FiO2 04/09/17 16:52 98.1 97 20 109/72 100 Room Air Disposition: HOME, SELF-CARE Condition: Stable Scripts Acetaminophen* (TYLENOL EXTRA STRENGTH*) 500 Mg Tablet 500 MG ORAL Q6H, #20 TAB 0 Refills Prov: Lauren Lawton 04/09/17 Methocarbamol* (ROBAXIN*) 500 Mg Tablet 500 MG PO QID for 7 Days, #28 TAB 0 Refills Prov: Lauren Lawton 04/09/17 Patient Instructions: Sciatica Additional Instructions: Take medications as directed. Follow up with a Primary Care Provider in 3-5 days, even if your symptoms have resolved. --Please review list of primary care clinics, if you do not already have a primary care provider-- may require physical therapy or MRI Return sooner to ED if new symptoms occur, or current symptoms become worse. Do not drink alcohol, drive, or operate heavy machinery while taking Robaxin/ Muscle Relaxer as this may cause drowsiness. - Please note that this Emergency Department Report was dictated using [employer] operator technology software, occasionally this can lead to erroneous entry secondary to interpretation by the dictation equipment. Lauren Lawton Apr 09, 2017 17:40
[2017-04-09] MEDS ORDERED: ROBAXIN500 MG PO (17:41)
[2017-04-09] MEDS ORDERED: TYLENOL EXTRA500 MG ORAL (17:41)
[2017-04-09] MEDS ORDERED: Ketorolac 60mg Inj IM ONE (17:45)
[2017-04-09] MEDS ORDERED: Methocarbamol 750mg tab ORAL ONE ×2 (17:45→18:00)
[2017-04-09 17:50] VITALS: BP 109/72
[2017-04-09 17:51] VITALS: BP 109/72
== END 2017-04-09 18:00 | disposition home or self-care (01) ==
LOC: EMR 17:30
DX: M54.42 Lumbago with sciatica, left side (principal); Z88.8 Allergy status to other drugs, medicaments and biological substances
CPT/HCPCS: 96372; 99284

== ENCOUNTER 2017-10-18 23:02 | Emergency (ER) | payer BC, MEDICARE, MEDICAID ==
[~2017-10-18] VITALS: Ht 152.4 cm; Wt 68.0 kg
[~2017-10-18 23:02] MED LIST changes: +LEXAPRO20 MG ORAL; +ROBAXIN500 MG PO; +TYLENOL EXTRA500 MG ORAL
[2017-10-19 00:06] VITALS: BP 94/63
--- NOTE | 2017-10-19 00:18 | Emergency Room Report ---
History of Present Illness General Chief Complaint: Pain Source: Patient Present Illness HPI This is a 41-year-old female with a history of chronic pain anxiety. She presents with chief complaint of severe anxiety and breakthrough pain. Onset today. No other complaint. I did not see this patient because she had left before I came into the room. Face on the [employer] system, she receive 150 tablets of diazepam yesterday. She is also currently on Buprenorphine. Allergies: Coded Allergies: NSAIDS (NON-STEROIDAL ANTI-INFLAMMA (Verified Allergy, Unknown, 10/18/17) Patient History Past Medical History: see triage record, old chart reviewed, psych hx Past Surgical History: other Pertinent Family History: none Social History: Denies: smoking Last Menstrual Period: n/a Now: No Immunizations: other Reviewed Nursing Documentation: PMH: Agreed; PSxH: Agreed Nursing Documentation-PMH Hx Cancer: No - Polycystic Ovarain syndrome Physical Exam Vital Signs Date Time Temp Pulse Resp B/P (MAP) Pulse Ox O2 Delivery O2 Flow Rate FiO2 10/18/17 23:36 98.1 70 16 94/63 94 Room Air 98.1 Medical Decision Making Diagnostic Impression: Primary Impression: Anxiety Additional Impression: Pain ER Course patient left prior to my seeing her. I do not see this patient. Last Vital Signs Date Time Temp Pulse Resp B/P (MAP) Pulse Ox O2 Delivery O2 Flow Rate FiO2 10/19/17 00:06 98.1 70 16 94/63 94 Room Air 98.1 Status: unchanged Disposition: LEFT W/OUT BEING SEEN Condition: Stable Referrals: NON PHYSICIAN (PCP) MARIAJOSE EASTMAN M.D. Oct 19, 2017 00:18
[2017-10-19 00:21] VITALS: BP 94/63
== END 2017-10-19 00:23 | disposition left against medical advice (07) ==
LOC: EMR 23:52
DX: F41.9 Anxiety disorder, unspecified (principal); G89.29 Other chronic pain; Z88.6 Allergy status to analgesic agent
CPT/HCPCS: 99281

== ENCOUNTER 2017-11-02 02:51 | Emergency (ER) | payer BC, MEDICARE, MEDICAID ==
[~2017-11-02] VITALS: Ht 152.4 cm; Wt 68.0 kg
--- NOTE | 2017-11-02 03:23 | Emergency Room Report ---
History of Present Illness General Chief Complaint: Pain Source: Patient, Medical Record Present Illness HPI Is a 41-year-old female with a history of chronic pain and currently taking Subetex. She presents with chief complaint of left knee pain. Onset for last 3 hours or so. No trauma. She said it felt sharp underneath her knee. Shooting down her walker. No trauma. Pain is 10 out of 10. She said her medication helped some. No nausea no vomiting no fever or chills. Able to walk didn't from triage without any difficulty. Allergies: Coded Allergies: NSAIDS (NON-STEROIDAL ANTI-INFLAMMA (Verified Allergy, Unknown, 10/18/17) Patient History Past Medical History: see triage record, old chart reviewed Past Surgical History: other Pertinent Family History: none Social History: Denies: smoking Now: No Immunizations: other Reviewed Nursing Documentation: PMH: Agreed; PSxH: Agreed Nursing Documentation-PMH Hx Cancer: No - Polycystic Ovarain syndrome Review of Systems Eye: Denies: eye pain, blurred vision ENT: Denies: ear pain, nose congestion, throat swelling Respiratory: Denies: cough, shortness of breath Cardiovascular: Denies: chest pain, palpitations Gastrointestinal: Denies: abdominal pain, diarrhea, nausea, vomiting Musculoskeletal: Reports: joint pain; Denies: back pain Skin: Denies: rash Neurological: Denies: headache, numbness Endocrine: Denies: increased thirst, increased urine Hematologic/Lymphatic: Denies: easy bruising All Other Systems: negative except mentioned in HPI Physical Exam Vital Signs Date Time Temp Pulse Resp B/P (MAP) Pulse Ox O2 Delivery O2 Flow Rate FiO2 11/02/17 02:55 98.2 76 18 105/68 95 Room Air 98.2 vitals normal Sp02 EP Interpretation: reviewed, normal General Appearance: well appearing, no apparent distress, alert Head: normocephalic, atraumatic Eyes: bilateral eye PERRL, bilateral eye EOMI ENT: hearing grossly normal, normal pharynx Neck: full range of motion, supple, no meningismus Respiratory: chest non-tender, lungs clear, normal breath sounds Cardiovascular #1: regular rate, rhythm, no murmur Gastrointestinal: normal bowel sounds, non tender, no mass, no organomegaly, no bruit, non-distended Musculoskeletal: back normal, gait/station normal, normal range of motion, other - Left knee: There is no redness. There is no effusion. Knee is stable. Full range of motion. Patient complaining of pain when I palpate over the patella. When I distract her, there was no pain. Patient walked without any difficulty. No limping. Neurologic: alert, oriented x3 Psychiatric: mood/affect normal Skin: warm/dry Medical Decision Making Diagnostic Impression: Primary Impression: Knee pain, acute Qualified Codes: M25.561 - Pain in right knee ER Course Patient presents with knee pain. No abnormality on my exam. No evidence of septic joint. No evidence of any fracture or dislocation. We'll discharge home. If continue, she may need an MRI. Patient wanted something stronger than Tylenol because she is already taking Subutex. She is resting comfortably. I see no evidence of any trauma or finding that is concerning. She is walking without difficulty. I am uncomfortable giving her any narcotics and she his arty on strong pain medication. She is walking without any difficulty. I told patient that if she needs an MRI does need to be done as an outpatient. She complained that the Tylenol may affect her gallbladder. Explained to the patient that there is no pathology from Tylenol with her gallbladder. I suspect this is an opiate and anxiety issue with her. Other X-Ray Diagnostic Results Other X-Ray Diagnostic Results : X-Ray ordered: Left knee x-rays # of Views/Limited Vs Complete: 4 View Indication: Pain EP Interpretation: Yes Interpretation: no dislocation, no soft tissue swelling, no fractures Impression: No acute disease Electronically Signed by: Roberth Sidhu MD Last Vital Signs Date Time Temp Pulse Resp B/P (MAP) Pulse Ox O2 Delivery O2 Flow Rate FiO2 11/02/17 02:55 98.2 76 18 105/68 95 Room Air 98.2 Status: unchanged Disposition: HOME, SELF-CARE Condition: Stable Referrals: NOT CHOSEN IPA/,REFERRING (PCP) Additional Instructions: follow-up your doctor in 7 days. Return if worse. if not better, you may need and MRI. ROBERTH SIDHU M.D. Nov 02, 2017 03:23
[2017-11-02 03:27] VITALS: BP 105/68
[2017-11-02] MEDS: Acetaminophen 500mg (ES) tab ORAL ONE ×2 (03:27→03:32)
[2017-11-02] MEDS ORDERED: DIAZEPAM5 MG ORAL (03:42)
[2017-11-02] MEDS ORDERED: BUPRENORPHINE HC8 MG SL (03:42)
--- NOTE | 2017-11-02 12:33 | Diagnostic Imaging Report ---
Indication: Knee pain, status post fall Technique: 4 views of the left knee Comparison: None Findings: No acute fractures. No dislocations. Joint spaces are preserved. No suprapatellar effusion Impression: No acute process
== END 2017-11-02 03:43 | disposition home or self-care (01) ==
LOC: EMR 03:16
DX: M25.562 Pain in left knee (principal); Z88.6 Allergy status to analgesic agent
CPT/HCPCS: 99283